=== PATIENT | male | born 1990 | race Caucasian/White ===

== ENCOUNTER 2018-12-08 18:52 | Observation (INO) ==
--- NOTE | 2018-12-08 19:15 | EKG Report ---
Test Performed on : 12/08/2018 7:06:01 PM Test Reason : chest pain Blood Pressure : / mmHG Vent. Rate : 096 BPM Atrial Rate : 096 BPM P-R Int : 104 ms QRS Dur : 080 ms QT Int : 322 ms P-R-T Axes : 065 076 051 degrees QTc Int : 406 ms Sinus rhythm. with short MI Otherwise normal ECG When compared with ECG of 05-FEB-2010 19:55, No significant change was found Unconfirmed Result
[2018-12-08 20:10] LABS: INFLUENZA A NEGATIVE (NEGATIVE); INFLUENZA B NEGATIVE (NEGATIVE)
[2018-12-08 20:42] LABS: INR 1.31; PROTIME 16.9 Seconds (11.0-16.0); PTT 33.9 Seconds (22.3-41.8)
--- NOTE | 2018-12-08 20:42 | PROVIDER DOCUMENTATION ---
This chart was entered by Joseph Reina Scribe, acting as scribe for Susana Pickens MD. HPI-Chest Pain - General Chief Complaint: Chest Pain Stated Complaint: CHEST PAIN Time Seen by Provider: 12/08/18 19:16 Source: patient Allergies/Adverse Reactions: Patient Allergies Allergy/AdvReac Type Severity Reaction Status Date / Time amoxicillin Allergy HIVES Verified 12/08/18 19:05 Penicillins Allergy Unknown Verified 12/09/18 04:03 Home Medications: Home Medication List Medication Instructions Recorded Confirmed Last Taken Type NK [No Home Medications] 12/09/18 12/09/18 Unknown History - History of Present Illness-CP Nature of Presenting Problem: 28 y/o M presents to the ED c/o chest pain for the past x1 week. Patient reports that yesterday the pain radiated to his left shoulder. Patient states that the pain is sharp in nature and intermittent. Patient reports that the pain is worse with movement. Patient report that yesterday he also started coughing up blood and vomiting blood. Patient reports that he has a history of ulcers. Patient states that he had a temp of 102.1 last night and treated himself with Naproxen. Patient denies abdominal pain, dysuria and all other symptoms. Patient does admit to being a 1ppd smoker. Patient denies any known sick contacts. Location: reports: substernal Chest Pain Radiation: reports: shoulders (left) Quality of Pain: reports: aching, sharp Severity in ED: mild Onset/Duration: last week Timing: still present Modifying Factors: worse with: movement Associated Symptoms: reports: dizziness, fever/chills, nausea, vomiting Similar Symptoms Previously?: No Recently Seen Here or By Another Healthcare Provider: No Review of Systems - Adult - REVIEW OF SYSTEMS - ADULT Constitutional: reports: chills, fever Eyes: reports: no symptoms reported Ears, Nose, Mouth & Throat: reports: no symptoms reported Cardiovascular: reports: no symptoms reported Respiratory: reports: cough. denies: shortness of breath Gastrointestinal: reports: hematemesis, vomiting. denies: abdominal pain, diarrhea Genitourinary: denies: dysuria, flank pain Musculoskeletal: reports: no symptoms reported Integumentary: reports: no symptoms reported Neurological: reports: dizziness/vertigo. denies: headache/migraines Psychiatric: reports: no symptoms reported Endocrine: reports: no symptoms reported Hematologic/Lymphatic: reports: no symptoms reported Allergic/Immunologic: reports: no symptoms reported All Other Systems: Reviewed and Negative Past History - Adult - PAST MEDICAL HISTORY-ADULT Review of Records: reports: Nursing Assessment Review, Medications Reviewed Major Childhood Illnesses: reports: denies history Cardiovascular: reports: denies history Respiratory: reports: denies history Gastrointestinal: reports: denies history Obstetrical/Gynecological: reports: denies history Genitourinary: reports: denies history Musculoskeletal: reports: denies history Neurological: reports: headaches/migraines Endocrine/Immune: reports: denies history Other Conditions: reports: denies history - IMMUNIZATION STATUS Childhood Immunizations: See Nurse Assessment Flu Vaccine: See Nurse Assessment - FAMILY HISTORY Family History: reviewed, not pertinent - SOCIAL HISTORY Smoking: denies Physical Exam-General - PHYSICAL EXAM-ADULT Initial Vital Signs Reviewed: Yes - CONSTITUTIONAL General Appearance: alert, other (uncomfortable appearing) - EYES Eyes: PERRL/EOMI - HEAD, EARS, NOSE, MOUTH & THROAT HENMT: normocephalic/atraumatic, moist mucous membranes, pharyngeal erythema (mild). negative: tonsillar exudate - NECK Neck: full range of motion, normal inspection - RESPIRATORY Respiratory: lungs clear, normal breath sounds, no respiratory distress, no accessory muscle use - CARDIOVASCULAR Cardiovascular: normal peripheral pulses, regular rate, rhythm - GASTROINTESTINAL (ABDOMEN) Abdominal Exam: normal bowel sounds, non tender, soft - MUSCULOSKELETAL Back Exam: normal inspection Extremity: normal range of motion, non-tender, normal gait - SKIN Integumentary: normal color, warm/dry - NEUROLOGIC Neurologic: grossly normal - PSYCHIATRIC Psych/Mental Status: normal mood/affect, oriented x 3 - HEART Score HEART Score: History: Slightly Suspicious HEART Score: ECG: Normal HEART Score: Age: < or = 45 Years HEART Score: Risk Factors for Atherosclerotic Disease: 1 or 2 Risk Factors HEART Score: Troponin: < or = Normal Limit Total HEART Score:: 1 Progress - PLAN OF CARE/RESULTS Progress/Plan/Lab Results: Laboratory Results - last 24 hr 12/08/18 12/08/18 12/08/18 19:08 19:08 19:08 WBC 43.77 H RBC 4.55 L Hgb 14.1 Hct 40.3 L MCV 88.6 MCH 31.0 MCHC 35.0 RDW Std Deviation 12.0 Plt Count 223 MPV 10.9 H Immature Gran % (Auto) 0.5 Neut % (Auto) 89.3 H Lymph % (Auto) 5.9 L [place] % (Auto) 3.7 Eos % (Auto) 0.4 Baso % (Auto) 0.2 Immature Gran # (Auto) 0.20 H Neut # (Auto) 39.13 H Lymph # (Auto) 2.58 [place] # (Auto) 1.63 H Eos # (Auto) 0.16 Baso # (Auto) 0.07 PT INR PTT (Actin FS) Sodium 139 Potassium 3.6 Chloride 98 Carbon Dioxide 28 Anion Gap 13 BUN 13 Creatinine 0.8 Estimated GFR/1.73 m2 > 60 BUN/Creatinine Ratio 16 Glucose 117 H Calculated Osmolality 279 Calcium 8.8 Total Bilirubin 0.40 AST 20 ALT 13 Alkaline Phosphatase 94 Troponin T [id number]-[id number] Pept 720 H Total Protein 6.0 L Albumin 4.0 Globulin 2.0 Albumin/Globulin Ratio 2.0 Urine Source Urine Color Urine Clarity Urine pH Ur Specific [place] Urine Protein Urine Ketones Urine Blood Urine Nitrite Urine Bilirubin Urine Urobilinogen Urine Microscopic RBC Urine WBC Urine Microscopic WBC Ur Epithelial Cells Urine Crystals Urine Bacteria Urine Casts Urine Yeast Urine Glucose Urine Opiates Screen Ur Oxycodone Screen Urine Methadone Screen U Propoxyphene Qual Ur Barbituates Screen Ur Tricyclics Screen Ur Phencyclidine Scrn Ur Amphetamines Screen U Methamphetamines Scrn U Benzodiazepines Scrn Urine Cocaine Screen U Cannabinoids Screen Influenza A (Rapid) Influenza B (Rapid) Group A Strep Rapid 12/08/18 12/08/18 12/08/18 19:08 19:08 19:12 WBC RBC Hgb Hct MCV MCH MCHC RDW Std Deviation Plt Count MPV Immature Gran % (Auto) Neut % (Auto) Lymph % (Auto) [place] % (Auto) Eos % (Auto) Baso % (Auto) Immature Gran # (Auto) Neut # (Auto) Lymph # (Auto) [place] # (Auto) Eos # (Auto) Baso # (Auto) PT 16.9 H INR 1.31 PTT (Actin FS) 33.9 Sodium Potassium Chloride Carbon Dioxide Anion Gap BUN Creatinine Estimated GFR/1.73 m2 BUN/Creatinine Ratio Glucose Calculated Osmolality Calcium Total Bilirubin AST ALT Alkaline Phosphatase Troponin T < 0.010 Uam-M-Aihdrckncsa Pept Total Protein Albumin Globulin Albumin/Globulin Ratio Urine Source CLEAN CATCH Urine Color ROGE Urine Clarity CLEAR Urine pH 6.5 Ur Specific [place] 1.020 Urine Protein TRACE A Urine Ketones TRACE Urine Blood NEGATIVE Urine Nitrite NEGATIVE Urine Bilirubin NEGATIVE Urine Urobilinogen 4 Urine Microscopic RBC <10 Urine WBC NEGATIVE Urine Microscopic WBC <10 Ur Epithelial Cells >10 A Urine Crystals NONE SEEN Urine Bacteria 1+ Urine Casts NONE SEEN Urine Yeast NONE SEEN Urine Glucose TRACE(50 mg/dL) A Urine Opiates Screen Ur Oxycodone Screen Urine Methadone Screen U Propoxyphene Qual Ur Barbituates Screen Ur Tricyclics Screen Ur Phencyclidine Scrn Ur Amphetamines Screen U Methamphetamines Scrn U Benzodiazepines Scrn Urine Cocaine Screen U Cannabinoids Screen Influenza A (Rapid) Influenza B (Rapid) Group A Strep Rapid 12/08/18 12/08/18 12/08/18 19:12 19:35 19:35 WBC RBC Hgb Hct MCV MCH MCHC RDW Std Deviation Plt Count MPV Immature Gran % (Auto) Neut % (Auto) Lymph % (Auto) [place] % (Auto) Eos % (Auto) Baso % (Auto) Immature Gran # (Auto) Neut # (Auto) Lymph # (Auto) [place] # (Auto) Eos # (Auto) Baso # (Auto) PT INR PTT (Actin FS) Sodium Potassium Chloride Carbon Dioxide Anion Gap BUN Creatinine Estimated GFR/1.73 m2 BUN/Creatinine Ratio Glucose Calculated Osmolality Calcium Total Bilirubin AST ALT Alkaline Phosphatase Troponin T Fxo-O-Ioowamnwkyu Pept Total Protein Albumin Globulin Albumin/Globulin Ratio Urine Source Urine Color Urine Clarity Urine pH Ur Specific [place] Urine Protein Urine Ketones Urine Blood Urine Nitrite Urine Bilirubin Urine Urobilinogen Urine Microscopic RBC Urine WBC Urine Microscopic WBC Ur Epithelial Cells Urine Crystals Urine Bacteria Urine Casts Urine Yeast Urine Glucose Urine Opiates Screen NONE DETECTED Ur Oxycodone Screen NONE DETECTED Urine Methadone Screen NONE DETECTED U Propoxyphene Qual NONE DETECTED Ur Barbituates Screen NONE DETECTED Ur Tricyclics Screen NONE DETECTED Ur Phencyclidine Scrn NONE DETECTED Ur Amphetamines Screen NONE DETECTED U Methamphetamines Scrn NONE DETECTED U Benzodiazepines Scrn NONE DETECTED Urine Cocaine Screen NONE DETECTED U Cannabinoids Screen PRESUMPTIVE POSITIVE A Influenza A (Rapid) NEGATIVE Influenza B (Rapid) NEGATIVE Group A Strep Rapid NEGATIVE Orders Category Date Time Status Admit - [facility] Routine AdmDCTranf 12/08/18 22:15 Active Admit - [facility] Routine AdmDCTranf 12/08/18 22:17 Active Activity - Up Ad Racheal ORDERED Care 12/08/18 22:15 Active Neurological Check PRN Care 12/08/18 22:15 Active Resuscitation Status Routine Care 12/08/18 22:15 Ordered Vital Signs Order ORDERED Care 12/08/18 22:15 Active Z-Document. for Tele Applied ORDERED Care 12/08/18 22:17 Completed Regular Diet Diet 12/08/18 22:18 Active CHEST-2 VIEWS [RAD] Stat Exams 12/08/18 19:07 Completed BLOOD CULTURE [BLDCUL] Stat Lab 12/08/18 21:26 Ordered BNP [PRO B-NATRIURETIC PEPTIDE] Stat Lab 12/08/18 19:08 Completed CBC WITH ELECTRONIC DIFF [HEME] Stat Lab 12/08/18 19:08 Completed COMPREHENSIVE METABOLIC PANEL [CHEM] Stat Lab 12/08/18 19:[address] Stat Lab 12/08/18 19:[address] Stat Lab 12/08/18 19:35 Completed PROTIME WITH INR [COAG] Stat Lab 12/08/18 19:08 Completed PTT [COAG] Stat Lab 12/08/18 19:08 Completed TROPONIN T Stat Lab 12/08/18 19:[address] W/POSS RFLX CULT [URINALYSIS] Stat Lab 12/08/18 19:12 Completed URINE DRUG SCREEN PL Stat Lab 12/08/18 19:12 Completed 0.9% Sodium Chloride Inj [Ns] 1,000 ml Med 12/08/18 22:15 Active IV 125 mls/hr Acetaminophen [Tylenol] Med 12/08/18 22:15 Discontinued 650 mg PO Q6H PRN PRN Azithromycin 500 mg/Ns [Zithromax 500 mg/Ns] Med 12/08/18 22:00 Discontinued 500 mg in 250 ml IV Q24H Azithromycin 500 mg/Ns [Zithromax 500 mg/Ns] Med 12/10/18 01:00 Active 500 mg in 250 ml IV Q24H CefTRIAXONE [Rocephin] 1 gm Med 12/08/18 21:30 Discontinued 0.9% Sodium Chloride Inj [Ns] 50 ml IV Q24H CefTRIAXONE [Rocephin] 1 gm Med 12/09/18 22:30 Active 0.9% Sodium Chloride Inj [Ns] 50 ml IV Q24H Ketorolac [Toradol] Med 12/08/18 22:15 Discontinued 15 mg IV Q6H PRN PRN Ondansetron [Zofran] Med 12/08/18 22:15 Discontinued 4 mg IV Q4H PRN PRN Telemetry [OM.EQ] Routine Oth 12/08/18 22:15 Active EKG [EKG] Stat Ther 12/08/18 19:07 Draft Transfer/Admit Order [TRANSFER] Routine Transfer 12/08/18 22:19 Completed Patient was seen here 10 days ago, diagnosed with pneumonia. Patient was given a prescription for doxycycline but was unable to fill it until today. Patient overall well appearing but WBC to 44. CXR showing LLL PNA. Spoke to hospitalist, Dr Santana who accepted patient for admission given leukocytosis to 44. Patient stable for floor. Result Diagrams: 12/08/18 19:08 12/08/18 19:08 - EKG 1 Time of EKG reading by physician:: 19:06 EKG Read and Signed by:: Susana Pickens EKG Interpretation (*Must complete 3 of following elements*): Normal Rate: 96 Rhythm: NSR Davidson: normal QRS: normal ST Wave: normal - XRAY 1 XRAY Study: Chest XRAY Interpretation: Left lower lobe PNA - CONSULTS/PCP/HOSPITALIST Notification #1 *Consult/PCP/Hospitalist*: Dr Santana Time Discussed: 22:14 Consult Disposition: Admit Departure - Departure Date of Disposition Decision: 12/08/18 Time of Disposition Decision: 22:13 DIAGNOSIS: Tobacco use disorder, Leukocytosis Pneumonia Qualifiers: Pneumonia type: due to unspecified organism Laterality: left Lung location: lower lobe of lung Qualified Code(s): J18.1 - Lobar pneumonia, unspecified organism Disposition: ADMITTED INPATIENT 09 Certified Medical Emergency: Emergent Condition: Stable - Critical Care Note This patient required my direct & personal management of CC.: No Attestation - Physician/ JORDAN Attestation Patient care was provided by Advanced Practice Provider:: No The physician spent face to face time with patient:: Yes Advanced Practice Provider documentation review:: Supervising physician onsite and consulted in the evaluation and care of this patient. The physician did have a face to face encounter with the patient. This chart was documented by the indicated scribe, (Joseph Reina Scribe) and accurately reflects the services I performed and decisions made by me, Susana Pickens MD, as attested by the provider's signature.
[2018-12-08 20:48] LABS: BASO# 0.07 X1000 (0.0-0.2); BASO% 0.2 % (0.0-0.8); EOS# 0.16 X1000 (0.0-0.7); EOS% 0.4 % (0.0-10.0); HEMATOCRIT 40.3 % (42.0-52.0); HEMOGLOBIN 14.1 g/dL (14.0-18.0); IMM GRAN% 0.5 % (0.0-0.5); LYMPH# 2.58 X1000 (1.2-3.4); LYMPH% 5.9 % (20.5-51.1); MCV 88.6 FL (81-99); MONO# 1.63 X1000 (0.11-0.59); MONO% 3.7 % (1.7-9.3); MPV 10.9 FL (7.4-10.4); NEUT# 39.13 X1000 (1.4-6.5); NEUT% 89.3 % (42.2-75.2); PLT 223 X1000 (130-400); RBC 4.55 XMIL (4.7-6.1); WBC 43.77 X1000 (4.8-10.8)
[2018-12-08 20:49] LABS: AGAP 13; ALKALINE PHOSPHATASE 94 U/L (32-122); BUN 13 mg/dL (8-22); CALCIUM 8.8 mg/dL (8.8-10.2); CHLORIDE 98 mmol/L (98-107); COSMO 279; CREATININE 0.8 mg/dL (0.7-1.2); ESTIMATED GFR > 60; GLUCOSE 117 mg/dL (70-104); GOT 20 U/L (10-34); GPT 13 U/L (10-44); POTASSIUM 3.6 mmol/L (3.5-5.1); SODIUM 139 mmol/L (136-145); TCO2 28 mmol/L (25-35)
[2018-12-08 20:51] LABS: BILIRUBIN URINE NEGATIVE (NEGATIVE); BLOOD URINE NEGATIVE (NEGATIVE); CLARITY CLEAR (CLEAR); COLOR AMBER; KETONE URINE TRACE mg/dL (NEGATIVE); LEUKOCYTES URINE NEGATIVE (NEGATIVE); NITRITE URINE NEGATIVE (NEGATIVE); PH URINE 6.5; PROTEIN URINE TRACE mg/dL (NEGATIVE); UROBILINOGEN URINE 4 mg/dL
[2018-12-08 20:53] LABS: URINE SOURCE CLEAN CATCH
[2018-12-08 20:54] LABS: URINE BACTERIA 1+ /HFP; URINE CAST NONE SEEN /LPF; URINE CRYSTAL NONE SEEN /HPF; URINE EPITHELIAL CELLS >10 /HPF (<10); URINE RBC <10 /HPF (<10); URINE WBC <10 /HPF (<10); URINE YEAST NONE SEEN /HPF
[2018-12-08 21:04] LABS: UR AMPHETAMINES QUAL NONE DETECTED (NONE DETECT); UR BARBITUATES QUAL NONE DETECTED (NONE DETECT); UR BENZODIAZEPIN QUAL NONE DETECTED (NONE DETECT); UR CANNABINOIDS QUAL PRESUMPTIVE POSITIVE (NONE DETECT); UR COCAINE QUAL NONE DETECTED (NONE DETECT); UR METHADONE QUAL NONE DETECTED (NONE DETECT); UR METHAMPHETAMINE QUAL NONE DETECTED (NONE DETECT); UR OPIATES QUAL NONE DETECTED (NONE DETECT); UR OXYCODONE QUAL NONE DETECTED (NONE DETECT); UR PCP QUAL NONE DETECTED (NONE DETECT); UR PROPOXYPHENE QUAL NONE DETECTED (NONE DETECT); UR TCA QUAL NONE DETECTED (NONE DETECT)
--- NOTE | 2018-12-08 21:22 | Diag Imaging Result Doc PS360 ---
EXAM: CHEST-2 VIEWS INDICATION: chest pain TECHNIQUE: 2 views COMPARISON: 11/28/2018 FINDINGS: There is a dense focal airspace consolidation at the left lung base indicating pneumonia. The right lung is clear. There is no discrete pleural fluid collection or pneumothorax. The cardiomediastinal silhouette and central vasculature are grossly unremarkable. IMPRESSION: Left basilar airspace consolidation suggesting pneumonia. Electronically signed by Brent Benavides 12/08/2018 9:20 PM
[2018-12-08] MEDS ORDERED: ROCEPHIN 1 GM in NS 50 ML IV SCH (21:30)
[2018-12-08] MEDS ORDERED: ZITHROMAX 500 MG/NS 500 MG/250 ML IVPB IV SCH (22:00)
[2018-12-08] MEDS ORDERED: TORADOL IV PRN (22:15)
[2018-12-08] MEDS ORDERED: TYLENOL PO PRN (22:15)
[2018-12-08] MEDS ORDERED: ZOFRAN IV PRN (22:15)
[2018-12-08] MEDS ORDERED: NS 1,000 ML IV ONE (22:15)
[2018-12-09] MEDS ORDERED: ZOFRAN IV PRN (03:11)
[2018-12-09] MEDS ORDERED: TYLENOL PO PRN (03:11)
[2018-12-09] MEDS: TORADOL IV PRN ×3 (05:29→22:49)
[2018-12-09] MEDS ORDERED: VANCOMYCIN IV PER PHARMACY MISC SCH (08:45)
[2018-12-09 09:12] LABS: HEMOGLOBIN 12.7 g/dL (14.0-18.0); RBC 4.17 XMIL (4.7-6.1); WBC 31.18 X1000 (4.8-10.8)
[2018-12-09 09:13] LABS: BASO# 0.04 X1000 (0.0-0.2); BASO% 0.1 % (0.0-0.8); EOS# 0.39 X1000 (0.0-0.7); EOS% 1.3 % (0.0-10.0); IMM GRAN# 0.09 X1000 (0.0-0.04); IMM GRAN% 0.3 % (0.0-0.5); LYMPH# 1.97 X1000 (1.2-3.4); LYMPH% 6.3 % (20.5-51.1); MCH 30.5 PG (27-31); MCHC 34.3 g/dL (33-37); MCV 88.7 FL (81-99); MONO# 1.01 X1000 (0.11-0.59); MONO% 3.2 % (1.7-9.3); NEUT# 27.68 X1000 (1.4-6.5); NEUT% 88.8 % (42.2-75.2); PLT 190 X1000 (130-400); RDW 11.8 % (11.5-14.5)
[2018-12-09 09:20] LABS: AGAP 7; ALBUMIN 3.6 g/dL (3.5-5.0); ALKALINE PHOSPHATASE 71 U/L (32-122); BUN 14 mg/dL (8-22); CALCIUM 8.4 mg/dL (8.8-10.2); CHLORIDE 104 mmol/L (98-107); COSMO 277; CREATININE 0.8 mg/dL (0.7-1.2); ESTIMATED GFR > 60; GLUCOSE 119 mg/dL (70-104); GOT 16 U/L (10-34); GPT 12 U/L (10-44); SODIUM 138 mmol/L (136-145); TCO2 26 mmol/L (25-35); TOTAL PROTEIN 5.9 g/dL (6.3-8.3)
[2018-12-09 09:33] LABS: BANDS 3 % (0-1); LYMPHS 10 % (21-51); MONO 3 % (1-9); SEGS 84 % (42-75)
[2018-12-09] MEDS ORDERED: VANCOMYCIN 2,000 MG in NS 500 ML IV ONE (10:00)
[2018-12-09] MEDS: NS 1,000 ML IV SCH ×2 (10:10→21:55)
[2018-12-09] MEDS ORDERED: TYLENOL WITH CODEINE #3 PO PRN (10:42)
--- NOTE | 2018-12-09 13:30 | HISTORY AND PHYSICAL ---
PRIMARY CARE PROVIDER: No one. CHIEF COMPLAINT: Left chest pain for a week. HISTORY OF PRESENT ILLNESS: Mr. Adryan Lyle is a 28-year-old male with medical history of peptic ulcer disease, migraines, and pectus excavatum, who now presents with complaints of left chest pain that radiates into the left shoulder. He states this has been going on for a week and apparently exactly 10 days ago he was also seen in the ER and treated for I believe for a sinus infection because at that time x-ray then was negative for pneumonia. He was sent home on doxycycline but never had it filled until yesterday, as apparently a 50 dollar prescription and he had lost his job because of having to be in the hospital, so he has recently started a new job but then he had to come in overnight due to having a fever of 102.1, which he treated with Naproxen, but also coughing up blood and also colors of green, yellow, and brown phlegm. White count was 44,000. X-ray showed a left lower lobe pneumonia. His lactate is normal so he is going to be treated with broad-spectrum antibiotics. Sputum culture will be sent to help determine bacteria and will follow along. PAST MEDICAL HISTORY: 1. Peptic ulcer disease. 2. Migraines. 3. Pectus excavatum. SURGICAL HISTORY: None. SOCIAL HISTORY: 1 pack per day smoker since the age of 11 so essentially for 17 years now. About 2 or 3 times a month he will drink a 12 pack of beer, so essentially 3 weeks out of the month he will have 1 night where he drinks 12 beers. Also has smoked marijuana, which he states the last time was his birthday, smokes about 4 or 5 times a year. His trade, he works in the [employer] or [employer]. He has a fiance who is currently . He also has 1 other child that his biological child and then 4 children that he considers his stepchildren. FAMILY HISTORY: Mother had stroke and a heart attack in her 70s and apparently both grandparents also had the same issue. Father had lung cancer, which he from, and some family members have brain cancer. ALLERGIES: Amoxicillin and penicillin for which he is unclear of what kind of reaction he has because he states his mother told him that he was allergic to it as a child. HOME MEDICATIONS: He has no home medications. REVIEW OF SYSTEMS: A 14-point review of systems are complete and all were negative except for those mentioned above in HPI. PHYSICAL EXAMINATION: VITAL SIGNS: 97.6 temperature, heart rate 67, respiratory rate 18, blood pressure 106/55, O2 saturation 98% on room air. GENERAL: Mr. Adryan Lyle is a 28-year-old male. He is in no acute distress. He is able to answer questions appropriately. HEENT: Atraumatic, normocephalic. Pupils equal, round, and reactive to light. Extraocular movements intact. Mucous membranes are dry. Poor dentition. NECK: Trachea midline. CARDIOVASCULAR: S1, S2, regular rate and rhythm. No rubs, gallops, or murmurs. No lower extremity edema, +2 dorsalis and radial pulses. Negative JVD or carotid bruits. PULMONARY: Clear to auscultate, bilateral breath sounds decreased in the left base. No accessory muscle use or work of breathing noted. GASTROINTESTINAL: Soft, nontender, nondistended, positive bowel sounds x4. EXTREMITIES: Moves all extremities equally with full range of motion. NEUROLOGIC: A and O x3, follows commands. Sensory is intact. SKIN: Warm, dry, intact. LABORATORY DATA: Presenting white blood cell count was 43.77, today is 31.8. Hemoglobin 12, hematocrit 37, platelet count 190. Sodium 138, potassium 4.0, BUN 14, creatinine 0.8, glucose 119, calcium 8.4, bilirubin 0.20, albumin 3.6, lactate 0.7. Urinalysis: Trace protein, trace glucose, 1+ bacteria. Urine drug screen positive for cannabinoids. Flu and Strep were all negative. IMAGING: Chest x-ray: Left basilar airspace consolidation suggestive of pneumonia and the right lung was clear. ASSESSMENT AND PLAN: 1. Community-acquired pneumonia now with severe leukocytosis. Lactate is normal, but we will start him broad-spectrum antibiotics. Will do vancomycin and Rocephin for now. Getting a sputum culture. He complains of green, yellow, brown phlegm. Will change antibiotics according to culture results. 2. History of peptic ulcer disease. No medications for now. 3. History of migraines. Denies headache. 4. Tobacco abuse. Cessation discussed. 5. Deep venous thrombosis prophylaxis, sequential compression devices. Dictated by TONY Sanders for Mian Santana MD cc: TONY Sanders MD
--- NOTE | 2018-12-09 14:06 | HISTORY AND PHYSICAL ---
ADDENDUM: I saw the patient [id number] and agree with the assessment and plan of nurse practitioner Carisa Barba. This is a 28-year-old gentleman who was seen a few days ago at the emergency room and was diagnosed as having sinusitis/upper respiratory infection for which a steroid injection was given to him. He comes back with the complaint of having left-sided chest pain of 1 week duration. He was noted to have left lower lobe infiltrate and his white blood cell count was elevated at 43.77. He is admitted and will receive broad-spectrum antibiotics. His white cell count has decreased to 31.18 this morning. I believe he has to be here for the next couple of days to receive antibiotics intravenously and to make sure his white blood cell count returns to normal range. Part of his leukocytosis is secondary to recent steroid administration, however. Further recommendations will be given as per hospital course. cc: Mian Santana MD
[2018-12-09] MEDS ORDERED: ROCEPHIN 1 GM in NS 50 ML IV SCH ×2 (21:00→22:30)
[2018-12-09] MEDS: VANCOMYCIN 1,600 MG in NS 250 ML IV SCH (22:47)
[2018-12-10] MEDS ORDERED: ZITHROMAX 500 MG/NS 500 MG/250 ML IVPB IV SCH (01:00)
[2018-12-10 07:49] LABS: BASO# 0.04 X1000 (0.0-0.2); BASO% 0.3 % (0.0-0.8); EOS% 4.3 % (0.0-10.0); HEMATOCRIT 38.1 % (42.0-52.0); HEMOGLOBIN 12.7 g/dL (14.0-18.0); IMM GRAN# 0.05 X1000 (0.0-0.04); IMM GRAN% 0.4 % (0.0-0.5); LYMPH# 1.94 X1000 (1.2-3.4); LYMPH% 13.7 % (20.5-51.1); MCHC 33.3 g/dL (33-37); MCV 89.9 FL (81-99); MONO# 0.67 X1000 (0.11-0.59); MONO% 4.7 % (1.7-9.3); MPV 10.8 FL (7.4-10.4); NEUT# 10.81 X1000 (1.4-6.5); NEUT% 76.6 % (42.2-75.2); PLT 195 X1000 (130-400); RBC 4.24 XMIL (4.7-6.1); RDW 11.9 % (11.5-14.5); WBC 14.11 X1000 (4.8-10.8)
[2018-12-10 08:12] LABS: AGAP 8; ALBUMIN 3.1 g/dL (3.5-5.0); ALKALINE PHOSPHATASE 67 U/L (32-122); BUN 9 mg/dL (8-22); CALCIUM 8.5 mg/dL (8.8-10.2); CHLORIDE 108 mmol/L (98-107); COSMO 280; CREATININE 0.7 mg/dL (0.7-1.2); ESTIMATED GFR > 60; GLUCOSE 96 mg/dL (70-104); GOT 15 U/L (10-34); GPT 12 U/L (10-44); SODIUM 141 mmol/L (136-145); TCO2 25 mmol/L (25-35); TOTAL BILIRUBIN < 0.15 mg/dL (0.20-1.00); TOTAL PROTEIN 5.4 g/dL (6.3-8.3)
[2018-12-10] MEDS: VANCOMYCIN 1,600 MG in NS 250 ML IV SCH (11:04)
[2018-12-10 12:41] VITALS: BP 131/82
--- NOTE | 2018-12-10 17:28 | DISCHARGE SUMMARY ---
ADMISSION DATE: 12/09/2018 DISCHARGE DATE: 12/10/2018 ADMISSION DIAGNOSES: 1. Community-acquired pneumonia. Now with severe leukocytosis. Lactate is normal. 2. History of peptic ulcer disease. 3. Migraines. 4. Tobacco abuse. DISCHARGE DIAGNOSES: 1. Community-acquired pneumonia with severe leukocytosis, resolving. 2. Peptic ulcer disease. 3. Migraines. 4. Tobacco abuse. Cessation discussed. CONSULTATIONS: None. SURGERIES AND PROCEDURES: None. HOSPITAL COURSE: Mr. Adryan Lyle is a 28-year-old male with a medical history of peptic ulcer disease, migraines, pectus excavatum. Now presents with complaints of left chest pain that radiates into the left shoulder. He states that this is been going on for a week and apparently exactly 10 days ago he was also seen in the emergency department and treated for what I believe was a sinus infection because the x-ray at that time was negative for pneumonia. He was sent home on doxycycline but never had it filled until the day before admission. Apparently it was a 50 dollar prescription; he felt like he did not have the money because he had lost his job after being in the hospital. Overnight he developed 102.1 fever. He treated it with naproxen but was apparently coughing up blood and the colors of green, yellow, and brown phlegm. He presented with a white blood cell count of 44,000. X-ray showed left lower lobe pneumonia. Lactate was normal. He was put on IV fluids, and he got broad-spectrum antibiotics. It looks like sputum was probably growing some gram-positive cocci, but there is not a final result yet. We did write him for cefdinir 300 mg p.o. twice a day to go home with. He actually has already filled his doxycycline so he may likely take that instead. While he was here, he did get treated with vancomycin, Rocephin, and I believe is still on azithromycin as well. White blood cell count essentially went from 44,000 down to 14,000 today. Vitals remain stable, and he is okay for discharge home. DISCHARGE VITAL SIGNS: Temperature 98.4 degrees, heart rate 70, respiratory rate 16, blood pressure 131/82, O2 saturation 100% on room air. DISCHARGE LAB DATA: White blood cells 14,000, hemoglobin 12, hematocrit 38, platelet count 195,000. Sodium 141, potassium 4.0, BUN 9, creatinine 0.7, glucose 96, calcium 8.8. Albumin 3.1. PERTINENT IMAGING: Chest x-ray on admission: Left basilar airspace consolidation suggesting pneumonia. EKG: Normal sinus rhythm, rate 96, QTc of 406. DISCHARGE MEDICATIONS: 1. Cefdinir 300 mg p.o. twice daily for 10 days, but he may possibly take his doxycycline that he paid 50 bucks for at home given that he feels like he does not have the money to pay for his medicine. 2. Tylenol #3 one p.o. every 4-6 hours p.r.n. DIET: Regular. ACTIVITY: As tolerated. INSTRUCTIONS: If your condition changes, contact physician and/or return to the emergency department. Changes may include, but are not limited to, shortness of breath, increased fatigue, excessive bleeding, unexplained weight loss or gain, unmanageable pain, signs or symptoms of infection. PHYSICIAN FOLLOWUP: None. DISPOSITION: Home. Dictated by TONY Sanders for Leonel Mullins MD Addendum: Patient seen and examined by myself. Agree with TONY note. It reflects my assessment and plan. Patient is being discharged in stable condition. Will be seen by PCP in a week. cc: TONY Sanders MD [facility]
== END 2018-12-10 13:35 | disposition home or self-care (01) | DRG 195 ==
LOC: P.ED 18:52 → SUATTDRO 12-09 01:48 → INTOOBSV 12-09 01:48 → P.MEDSURG 12-09 01:48
PROVIDERS: ATTEND Internal Medicine